=== PATIENT | female | born 1950 | race Caucasian/White ===

== ENCOUNTER → 2016-07-23 | Outpatient (CLI) | payer BC ==
[2016-07-23 12:29] LABS: BASO % 0.9 %; BASO ABS # 0.04 K/uL (0-0.2); COMPLETE YES; EOS % 5.5 %; HEMATOCRIT 42.1 % (37-47); LYMPH % 34.6 %; LYMPH ABS # 1.58 K/uL (1.2-3.4); MEAN CORPUSCULAR HEMOGLOBIN 30.3 pg (25-34); MEAN CORPUSCULAR HGB CONC 33.7 g/dl (32-36); MEAN PLATELET VOLUME 9.9 fL (7.4-10.4); MONO % 7.4 %; NEUT % 51.6 %; PLATELET COUNT 286 K/uL (130-400); RED BLOOD COUNT 4.68 M/uL (4.2-5.4); WHITE BLOOD COUNT 4.57 K/uL (4.8-10.8)
[2016-07-23 12:39] LABS: ALT/SGPT 27 U/L (12-78); BLOOD UREA NITROGEN 22 mg/dl (7-18); BUN/CREATININE RATIO 28.8 (10-20); CALCIUM 9.4 mg/dl (8.5-10.1); CARBON DIOXIDE 24 mmol/L (21-32); CHLORIDE 107 mmol/L (98-107); CHOLESTEROL 261 mg/dl (0-200); CREATININE 0.77 mg/dl (0.60-1.20); GLUCOSE 90 mg/dl (70-99); SODIUM 142 mmol/L (136-145); TRIGLYCERIDES 193 mg/dl (0-150); VERY LOW DENSITY LIPOPROT CALC 39 mg/dl
[2016-07-23 12:49] LABS: ALKALINE PHOSPHATASE 81 U/L (45-117); AST/SGOT 16 U/L (15-37); CHOLESTEROL/HDL RATIO 5.3; HDL CHOLESTEROL 49 mg/dl; LDL CHOLESTEROL CALCULATED 173 mg/dl
== END | disposition home or self-care (01) ==
LOC: C.LABPBG 10:31
PROVIDERS: ATTEND Internal Medicine
DX: E78.5 Hyperlipidemia, unspecified (principal); M85.80 Other specified disorders of bone density and structure, unspecified site; M25.50 Pain in unspecified joint; M79.7 Fibromyalgia; F43.22 Adjustment disorder with anxiety

== ENCOUNTER → 2016-10-20 | Outpatient (CLI) | payer BC ==
--- NOTE | 2016-10-20 17:14 | MAMMOGRAPHY REPORT ---
THIS REPORT HAS BEEN AMENDED. BILATERAL DIGITAL SCREENING MAMMOGRAM WITH CAD: 10/20/2016 CLINICAL HISTORY: Routine screening. Patient has no complaints. TECHNIQUE: Bilateral CC and MLO views were obtained. Current study was also evaluated with a Comput er Aided Detection (CAD) system. COMPARISON: No prior exams were available for comparison. BREAST COMPOSITION: There are scattered areas of fibroglandular density in both breasts. FINDINGS: There are numerous benign rim calcifications throughout the left breast. A few smaller alessandro ign appearing calcifications in the right breast. There is a possible area of architectural distortion in the superior, middle to posterior right breas t, best seen on the MLO view, for which additional spot compression tomosynthesis views and possibly ultrasound are recommended. No other suspicious mass, architectural distortion or cluster of microcalcifications is seen bilatera lly. IMPRESSION: ACR BI-RADS CATEGORY 0: INCOMPLETE EVALUATION: NEED ADDITIONAL IMAGING EVALUATION The possible area of architectural distortion in the superior right breast needs additional evaluatio n. The patient will be called to schedule an appointment. Approximately 10% of breast cancers are not detected with mammography. A negative mammographic report should not delay biopsy if a clinically suggestive mass is present. Rayne Barrera M.D. ay/:10/20/2016 15:41:44 Web Developer Programmer: Joycelyn KIMR, M, [facility] letter sent: [facility] 0 BI-RADS Code: ACR BI-RADS Category 0: Incomplete Evaluation: Need Additional Imaging Evaluation AMENDMENT: 11/23/2016 Rayne Barrera M.D. Prior outside mammograms performed 09/26/2012, 05/29/2014 from [facility] became avail able for review. The report from the May 2014 mammogram is also available. The asymmetry in the superior right breast appears somewhat similar to the 2012 exam suggesting it could represent normal overlapping tissue. However, additional spot compression tomosynthesis views and possible ultrasoun d are recommended. Based on the outside report from 05/29/2014, further evaluation with ultrasound was recommended in th e left breast and it is unclear if this has been performed. Based on the current mammogram comparing to the 2014 exam most of the masses have decreased in size, confirming benign fluctuating cysts. Amended BI-RADS: ACR BI-RADS Category 0: Incomplete Evaluation: Need Additional Imaging Evaluation letter sent: [facility] 0
== END ==
LOC: C.MAMM 14:32
PROVIDERS: ATTEND Obstetrics & Gynecology
DX: Z12.31 Encounter for screening mammogram for malignant neoplasm of breast (principal)

== ENCOUNTER → 2016-12-15 | Outpatient (CLI) | payer BC ==
--- NOTE | 2016-12-15 13:43 | MAMMOGRAPHY REPORT ---
UNILATERAL RIGHT DIGITAL DIAGNOSTIC MAMMOGRAM TOMOSYNTHESIS AND TARGETED RIGHT ULTRASOUND: 12/15/2016 CLINICAL HISTORY: 66-year-old woman called back from screening mammography for an asymmetry in the cortes perior right breast on the MLO view. TECHNIQUE: Spot compression right CC and MLO 2-D and tomosynthesis images were obtained. COMPARISON: Comparison is made to exams dated: 10/20/2016 mammogram and 12/15/2016 ultrasound - [facility]. BREAST COMPOSITION: There are scattered areas of fibroglandular density in the right breast. FINDINGS: On the spot compression MLO view and corresponding tomosynthesis images in the superior rig ht breast, there is effacement of the irregular asymmetry seen on the 10/20/2016 screening mammogram. No persistent architectural distortion or obvious mass. No suspicious microcalcification. Targeted ultrasound was performed throughout the right upper outer and upper inner quadrants. A few scattered benign cysts are seen within the 9:00, 10:00 and 11:00 axes. There is no evidence of a suzanne picious solid or cystic mass. IMPRESSION: ACR BI-RADS CATEGORY 2: BENIGN, TARGETED ULTRASOUND ACR BI-RADS CATEGORY 2: BENIGN There is effacement of the asymmetry in the superior right breast with additional supplemental mammog raphic views and tomosynthesis images. No suspicious mass was identified on targeted ultrasound, onl y a few scattered benign cysts. There is no mammographic or targeted sonographic evidence of maligna ncy. Return to annual mammogram screening schedule is recommended. The patient has been verbally not ified of the results. Approximately 10% of breast cancers are not detected with mammography. A negative mammographic report should not delay biopsy if a clinically suggestive mass is present. Rayne Barrera M.D. ay/:12/15/2016 12:14:39 Improvement Coordinator: Vonnie REYNAGA)(Shailesh), [facility] letter sent: Normal 1/2 BI-RADS Code: ACR BI-RADS Category 2: Benign Ultrasound BI-RADS: ACR BI-RADS Category 2: Benign
== END | disposition home or self-care (01) ==
LOC: C.MAMM 10:45
PROVIDERS: ATTEND Obstetrics & Gynecology
DX: R92.2 Inconclusive mammogram (principal)

== ENCOUNTER → 2017-02-21 | Outpatient (CLI) | payer BC ==
[2017-02-21 11:56] LABS: ALT/SGPT 29 U/L (12-78); AST/SGOT 19 U/L (15-37); BLOOD UREA NITROGEN 22 mg/dl (7-18); BUN/CREATININE RATIO 25.4 (10-20); CALCIUM 9.3 mg/dl (8.5-10.1); CARBON DIOXIDE 25 mmol/L (21-32); CHLORIDE 107 mmol/L (98-107); CREATININE 0.85 mg/dl (0.60-1.20); GLUCOSE 91 mg/dl (70-99); SODIUM 140 mmol/L (136-145)
[2017-02-21 11:59] LABS: CHOLESTEROL 272 mg/dl (0-200); CHOLESTEROL/HDL RATIO 4.6; HDL CHOLESTEROL 59 mg/dl; LDL CHOLESTEROL CALCULATED 173 mg/dl; TRIGLYCERIDES 198 mg/dl (0-150); VERY LOW DENSITY LIPOPROT CALC 40 mg/dl
== END | disposition home or self-care (01) ==
LOC: C.LABPBG 08:50
PROVIDERS: ATTEND Internal Medicine
DX: M85.80 Other specified disorders of bone density and structure, unspecified site (principal); E78.5 Hyperlipidemia, unspecified

== ENCOUNTER → 2017-06-07 | Outpatient (CLI) | payer BC ==
[2017-06-07 12:13] LABS: HEMATOCRIT 44.1 % (37-47); HEMOGLOBIN 14.8 g/dL (12.0-16.0); MEAN CELL VOLUME 91.1 fL (80-100); MEAN CORPUSCULAR HEMOGLOBIN 30.6 pg (25-34); MEAN CORPUSCULAR HGB CONC 33.6 g/dl (32-36); PLATELET COUNT 271 K/uL (130-400); RED CELL DISTRIBUTION WIDTH CV 12.8 % (11.5-14.5); RED CELL DISTRIBUTION WIDTH SD 42.9 fL (36.4-46.3); WHITE BLOOD COUNT 4.41 K/uL (4.8-10.8)
== END | disposition home or self-care (01) ==
LOC: C.LAB1850 10:30
PROVIDERS: ATTEND Internal Medicine
DX: E78.5 Hyperlipidemia, unspecified (principal); M25.50 Pain in unspecified joint

== ENCOUNTER 2024-05-25 12:55 | Inpatient (IN) ==
--- NOTE | 2024-05-25 13:56 | XRay Report ---
XR chest 1V portable CLINICAL HISTORY: chest tightness TECHNIQUE: Single frontal radiograph of the chest was obtained. Comparison: None available at the time of this dictation. FINDINGS: No lines and tubes are seen. The cardiomediastinal silhouette is normal. The lungs are clear. No evid ence of pleural effusion or pneumothorax. IMPRESSION: No acute chest disease. ACT 112: Negative or not required by law. Electronically signed by: Jori Fortune M.D. 05/25/2024 1:55 PM
[2024-05-25 14:00] LABS: Basophils # (auto) 0.06 K/uL (0.00-0.20); Basophils % (auto) 0.5 %; Eosinophils # (auto) 0.06 K/uL (0.00-0.50); Eosinophils % (auto) 0.5 %; Hematocrit (blood only) 43.4 % (37.0-47.0); Hemoglobin 14.2 g/dl (12.0-16.0); Immature Granulocytes # (auto) 0.06 K/uL (0.01-0.20); Immature Granulocytes % (auto) 0.5 %; Lymphocytes # (auto) 1.38 K/uL (1.20-3.40); Lymphocytes % (auto) 10.6 %; Mean Corpuscular Hemoglobin 30.2 pg (25.0-34.0); Mean Corpuscular Hgb Conc 32.7 g/dL (32.0-36.0); Mean Corpuscular Volume 92.3 fL (80.0-100.0); Mean Platelet Volume 9.7 fL (9.4-12.4); Monocytes # (auto) 0.82 K/uL (0.11-0.59); Monocytes % (auto) 6.3 %; Neutrophils # (auto) 10.62 K/uL (1.40-6.50); Neutrophils % (auto) 81.6 %; Platelet Count 285 K/uL (130-400); RDW Coefficient of Variation 12.3 % (11.5-14.5)
[2024-05-25 14:14] LABS: Albumin Globulin Ratio 1.7 (0.9-2); Albumin Level 4.5 gm/dl (3.4-5.0); Bilirubin,Total 0.6 mg/dl (0.2-1.0); Calcium 9.7 mg/dl (8.6-10.3); Globulin 2.7 gm/dl (2.5-4.0); Total Protein 7.2 gm/dl (6.0-8.3)
[2024-05-25 14:16] LABS: Appearance Urine Turbid (Clear); Bacteria Urine Automated None Seen (None Seen); Bilirubin Urine Negative (Negative); Blood Urine 3+ (Negative); Cast Urine Automated 0-2 /lpf (0-2); Color Urine Yellow; Epithelial Cell Urine Auto 0-2 /hpf (0-2); Glucose Urine UA Negative (Negative); Ketones Urine Negative (Negative); Leukocyte Esterase Urine 3+ (Negative); Nitrite Urine Negative (Negative); Protein Urine 2+ (Negative); RBC Urine Automated >20 /hpf (0-2); Specific Gravity Urine 1.016 (1.000-1.030); Urobilinogen Urine Negative (Negative); WBC Urine Automated >50 /hpf (0-5); pH Urine 5.5 (4.5-7.5)
[2024-05-25 14:21] LABS: INR 0.9 (0.9-1.1); Prothrombin Time 10.2 Seconds (9.0-12.0)
--- NOTE | 2024-05-25 14:56 | Emergency Department Note ---
Impression & Plan Generalized weakness, Acute UTI (urinary tract infection) ED Provider Note HISTORY OF PRESENT ILLNESS: Patient is a 74-year-old female presenting with cough and shortness of breath. Patient reports she has been "sick for 18 days." She reports that she was recently diagnosed with a urinary tract infection when she presented with hematuria. Reports that she just finished a course of antibiotics for her UTI 3 days ago. She reports that this morning she woke up and started having bright red blood in her urine again and passing small clots. She reports feeling very rundown and weak and unable to do her daily activities. She has had a chronic cough for 18 days and nasal congestion. Denies any DVT or PE history. Denies any chest pain. Reports that she just feels like she cannot get up and do anything because she lacks any energy. Denies any notable fevers. Denies any abdominal pain, nausea or vomiting. ROS: as above PHYSICAL EXAM: Constitutional: Patient appears in no acute distress. HENT: Head: Normocephalic and atraumatic. Eyes: EOMI, PERRL Mouth/Throat: Mucous membranes moist. Neck: Trachea midline. Neck supple. Cardiovascular: RRR, No murmurs, rubs or gallops. Intact distal pulses. Pulmonary/Chest: No respiratory distress. Breath sounds clear and equal bilaterally. No wheezes or rales. Abdominal: Abdomen soft, no tenderness, rebound or guarding. Musculoskeletal: No edema, tenderness or deformity noted. Skin: Warm and dry. No rash, erythema, pallor or cyanosis Psychiatric: Appropriate mood and affect for situation. Neurological: Alert and keenly responsive. CN II-XII grossly intact, moving all extremities equally and fully. MDM: - Vitals signs stable - History obtained via patient. History as above. - Chronic conditions affecting care: hypothyroidism; HLD; depression/anxiety - Differential diagnoses include, but are not limited to: UTI; ureteral stone; viral syndrome; pneumonia; electrolyte abnormality - Order placed for continuous cardiac monitoring. At this time, monitor showed rate of 84 bpm with normal sinus rhythm, per my interpretation. - External medical records reviewed. Pharmacy report dated 05/15/2024 was reviewed. Patient had a positive urine culture that was pansensitive for E. coli. She was discharged with Keflex which should cover the organism. - EKG interpreted by myself showed normal sinus rhythm. Rate 96 bpm. QT 360. No acute ischemic changes. - Laboratory workup interpreted by myself showed leukocytosis (WBC 13.00) with neutrophil predominance; normal PT/INR; stable electrolyte; normal lipase; normal troponin - UA shows evidence of infection - CXR negative for pneumonia, per my interpretation - Viral respiratory panel negative - Blood cultures, lactate and procalcitonin ordered - Patient given 2g IV rocephin for UTI - CT abdomen/pelvis with IV contrast showed no calculus or hydronephrosis. Noted have a distended bladder and bladder wall thickening concerning for cystitis. No bowel obstruction. Noted to have hepatic steatosis. - Normal procalcitonin, normal lactate on workup. - Discussion was had with manager of case management about patient's case and need for admission - Hospitalist consulted for admission - Patient admitted to [facility] service for further evaluation and management. ASSESSMENT AND PLAN: Diagnosis: generalized weakness; acute UTI Plan: admit Past Med/Surg History Problem List (Updated 05/25/24 @ 15:54 by Damaris Bolanos MD) Acute UTI (urinary tract infection) (Acute) Generalized weakness (Acute) Acute cystitis with hematuria (Acute) History of colon polyps Lobular carcinoma of breast Hypothyroidism Atypical hyperplasia of right breast Pre-op evaluation Right shoulder pain Palpitations Colon cancer screening Fibromyalgia Osteoarthritis Interstitial cystitis GERD (gastroesophageal reflux disease) IBS (irritable bowel syndrome) Depression Anxiety Hyperlipidemia Bladder spasm (Acute) Urethritis (Acute) Medical History Osteoarthritis IBS (irritable bowel syndrome) Hypothyroidism Hyperlipidemia GERD (gastroesophageal reflux disease) Fibromyalgia Anxiety and depression History of COVID-19 Interstitial cystitis History of right breast cancer Nephrolithiasis Temporomandibular joint disorder Surgical History History of lumpectomy of right breast H/O oophorectomy History of esophagogastroduodenoscopy (EGD) History of colonoscopy History of tooth extraction History of adenoidectomy History of tonsillectomy History of cardiac cath H/O: hysterectomy Family History Mother Myocardial infarction Hypertension Father Hypertension Brother Prostate cancer Kidney malignancy Other No family history of adverse response to anesthesia Denies family history of Ovarian cancer Breast cancer Colorectal cancer Social History Smoking Status: Never smoker Second Hand Exposure: No; Do You Dip or Chew Tobacco: No; Hx Alcohol Use: No Hx Substance Use: No Preferred Language: Iraqi Communication Ability: Effective Blender Conveyor Operator Required: No Beliefs That Will Affect Care: None marital status: Current Living Situation: Spouse current occupational status: retired Feels Safe at Home: Yes Childhood Exposure to Second-Hand Smoke: No Dental Care, Regularly: Yes Physical Activity Frequency: Daily Physical Activity Frequency Comment: walking Seatbelt Use: always Sunscreen Use: Yes Assistive Devices: Glasses Allergies Allergies Allergy/AdvReac Type Severity Reaction Status Date / Time morphine Allergy Mild Vomiting Verified 12/05/23 13:15 cyclobenzaprine AdvReac Mild "makes me Verified 12/05/23 13:15 [From Flexeril] not feel good" metaxalone [From Skelaxin] AdvReac Mild "makes me Verified 12/05/23 13:15 not feel good" Home Meds Home Medications Medication Instructions Recorded Confirmed aspirin 81 mg tablet,delayed 81 mg PO QAM 10/17/18 12/05/23 release cholecalciferol (vitamin D3) 50 4,000 unit PO QAM 10/17/18 12/05/23 mcg (2,000 unit) tablet (Vitamin D3) magnesium oxide 400 mg PO QAM 10/17/18 12/05/23 turmeric 400 mg capsule 400 mg PO QAM 10/17/18 12/05/23 vitamin E mixed 400 unit capsule 400 unit PO QAM 10/01/20 12/05/23 levothyroxine 25 mcg tablet 25 mcg PO HS 10/18/23 12/05/23 rosuvastatin 5 mg tablet 5 mg PO [id number] 10/18/23 12/05/23 tamoxifen 10 mg tablet 5 mg PO QPM 10/18/23 12/05/23 famotidine 10 mg tablet (Pepcid AC) 10 mg PO DAILY 12/05/23 12/05/23 Previous Rx's Medication Instructions Recorded escitalopram oxalate 10 mg tablet 20 mg (2 x 10 mg) PO HS #180 tabs 05/10/24 phenazopyridine 200 mg tablet 200 mg PO Q8H 6 doses #6 tabs 05/13/24 (Pyridium) Results & Data (ED) Vital Signs Vital Signs - 24 hr 05/25/24 13:07 05/25/24 14:28 05/25/24 14:30 Temperature 37.0 C Temperature Source Temporal Artery Scan Pulse Rate 90 82 83 Respiratory Rate 20 16 20 Respiratory Effort / Characteristics Non-Labored Spontaneous Respiratory Depth Normal Respiratory Pattern Regular Blood Pressure 128/85 126/86 119/78 Blood Pressure Mean 99 99 91 Blood Pressure Position Sitting Pulse Oximetry 96 93 94 Oxygen Delivery Method Room Air Room Air Sepsis Recent Fever Within 48 Hours No Sepsis New/Unexplained Change in Mental Status N/A Sepsis Action Taken by Nursing No Action Required Laboratory Data 05/25/24 13:22 05/25/24 13:22 Lab Results 05/25/24 05/25/24 05/25/24 Range/Units 13:22 14:00 14:05 WBC 13.00 H (4.8-10.8) K/ul RBC 4.70 (4.20-5.40) M/uL Hgb 14.2 (12.0-16.0) g/dl Hct 43.4 (37.0-47.0) % MCV 92.3 (80.0-100.0) fL MCH 30.2 (25.0-34.0) pg MCHC 32.7 (32.0-36.0) g/dL RDW Std Deviation 42.0 (36.4-46.3) fL RDW Coeff of Oscar 12.3 (11.5-14.5) % Plt Count 285 (130-400) K/uL MPV 9.7 (9.4-12.4) fL Immature Gran % (Auto) 0.5 % Neut % (Auto) 81.6 % Lymph % (Auto) 10.6 % Keith % (Auto) 6.3 % Eos % (Auto) 0.5 % Baso % (Auto) 0.5 % Neut # (Auto) 10.62 H (1.40-6.50) K/uL Lymph # (Auto) 1.38 (1.20-3.40) K/uL Keith # (Auto) 0.82 H (0.11-0.59) K/uL Eos # (Auto) 0.06 (0.00-0.50) K/uL Baso # (Auto) 0.06 (0.00-0.20) K/uL Immature Gran # (Auto) 0.06 (0.01-0.20) K/uL PT 10.2 (9.0-12.0) Seconds INR 0.9 (0.9-1.1) Sodium 138 (136-145) mmol/L Potassium 4.0 (3.5-5.1) mmol/L Chloride 104 (98-107) mmol/L Carbon Dioxide 25 (21-32) mmol/L Anion Gap 9 (3-11) BUN 16 (6-23) mg/dl Creatinine 0.94 (0.6-1.2) mg/dl Est Cr Clr Drug Dosing 48.0 ml/min eGFR 63.67 BUN/Creatinine Ratio 17.0 (10-20) Glucose 131 H (70-99(Fasting)) mg/dl Lactate (0.4-2.0) mmol/L Calcium 9.7 (8.6-10.3) mg/dl Total Bilirubin 0.6 (0.2-1.0) mg/dl AST 24 (13-39) U/L ALT 36 (7-52) U/L Alkaline Phosphatase 60 (34-104) U/L Troponin I High Sens (0-14) pg/ml Total Protein 7.2 (6.0-8.3) gm/dl Albumin 4.5 (3.4-5.0) gm/dl Globulin 2.7 (2.5-4.0) gm/dl Albumin/Globulin Ratio 1.7 (0.9-2) Lipase 21 (11-82) U/L Procalcitonin < 0.02 (0-0.5) ng/ml Urine Color Yellow Urine Appearance Turbid A (Clear) Urine pH 5.5 (4.5-7.5) Ur Specific [place] 1.016 (1.000-1.030) Urine Protein 2+ H (Negative) Urine Glucose (UA) Negative (Negative) Urine Ketones Negative (Negative) Urine Blood 3+ H (Negative) Urine Nitrite Negative (Negative) Urine Bilirubin Negative (Negative) Urine Urobilinogen Negative (Negative) Ur Leukocyte Esterase 3+ H (Negative) Urine WBC (Auto) >50 H (0-5) /hpf Urine RBC (Auto) >20 H (0-2) /hpf U Hyaline Cast (Auto) 0-2 (0-2) /lpf U Epithel Cells (Auto) 0-2 (0-2) /hpf Urine Bacteria (Auto) None Seen (None Seen) Adenovirus (PCR) Not Detected (NotDetected) B. pertussis DNA (PCR) Not Detected (NotDetected) B.parapertussis DNA PCR Not Detected (NotDetected) C. pneumoniae DNA (PCR) Not Detected (NotDetected) Coronavirus OC43 (PCR) Not Detected (NotDetected) Coronavirus HKU1 (PCR) Not Detected (NotDetected) Coronavirus 229E (PCR) Not Detected (NotDetected) SARS-CoV-2 (PCR) Not Detected (NotDetected) Coronavirus NL63 (PCR) Not Detected (NotDetected) Human Metapneumovir PCR Not Detected (NotDetected) Influenza Type A (PCR) Not Detected (NotDetected) Influenza Type B (PCR) Not Detected (NotDetected) M. pneumoniae (PCR) Not Detected (NotDetected) Parainfluenza 1 (PCR) Not Detected (NotDetected) Parainfluenza 2 (PCR) Not Detected (NotDetected) Parainfluenza 3 (PCR) Not Detected (NotDetected) Parainfluenza 4 (PCR) Not Detected (NotDetected) RSV (PCR) Not Detected (NotDetected) Entero/Rhino (PCR) Not Detected (NotDetected) 05/25/24 Range/Units 15:30 WBC (4.8-10.8) K/ul RBC (4.20-5.40) M/uL Hgb (12.0-16.0) g/dl Hct (37.0-47.0) % MCV (80.0-100.0) fL MCH (25.0-34.0) pg MCHC (32.0-36.0) g/dL RDW Std Deviation (36.4-46.3) fL RDW Coeff of Oscar (11.5-14.5) % Plt Count (130-400) K/uL MPV (9.4-12.4) fL Immature Gran % (Auto) % Neut % (Auto) % Lymph % (Auto) % Keith % (Auto) % Eos % (Auto) % Baso % (Auto) % Neut # (Auto) (1.40-6.50) K/uL Lymph # (Auto) (1.20-3.40) K/uL Keith # (Auto) (0.11-0.59) K/uL Eos # (Auto) (0.00-0.50) K/uL Baso # (Auto) (0.00-0.20) K/uL Immature Gran # (Auto) (0.01-0.20) K/uL PT (9.0-12.0) Seconds INR (0.9-1.1) Sodium (136-145) mmol/L Potassium (3.5-5.1) mmol/L Chloride (98-107) mmol/L Carbon Dioxide (21-32) mmol/L Anion Gap (3-11) BUN (6-23) mg/dl Creatinine (0.6-1.2) mg/dl Est Cr Clr Drug Dosing ml/min eGFR BUN/Creatinine Ratio (10-20) Glucose (70-99(Fasting)) mg/dl Lactate 1.4 (0.4-2.0) mmol/L Calcium (8.6-10.3) mg/dl Total Bilirubin (0.2-1.0) mg/dl AST (13-39) U/L ALT (7-52) U/L Alkaline Phosphatase (34-104) U/L Troponin I High Sens < 2.3 (0-14) pg/ml Total Protein (6.0-8.3) gm/dl Albumin (3.4-5.0) gm/dl Globulin (2.5-4.0) gm/dl Albumin/Globulin Ratio (0.9-2) Lipase (11-82) U/L Procalcitonin (0-0.5) ng/ml Urine Color Urine Appearance (Clear) Urine pH (4.5-7.5) Ur Specific [place] (1.000-1.030) Urine Protein (Negative) Urine Glucose (UA) (Negative) Urine Ketones (Negative) Urine Blood (Negative) Urine Nitrite (Negative) Urine Bilirubin (Negative) Urine Urobilinogen (Negative) Ur Leukocyte Esterase (Negative) Urine WBC (Auto) (0-5) /hpf Urine RBC (Auto) (0-2) /hpf U Hyaline Cast (Auto) (0-2) /lpf U Epithel Cells (Auto) (0-2) /hpf Urine Bacteria (Auto) (None Seen) Adenovirus (PCR) (NotDetected) B. pertussis DNA (PCR) (NotDetected) B.parapertussis DNA PCR (NotDetected) C. pneumoniae DNA (PCR) (NotDetected) Coronavirus OC43 (PCR) (NotDetected) Coronavirus HKU1 (PCR) (NotDetected) Coronavirus 229E (PCR) (NotDetected) SARS-CoV-2 (PCR) (NotDetected) Coronavirus NL63 (PCR) (NotDetected) Human Metapneumovir PCR (NotDetected) Influenza Type A (PCR) (NotDetected) Influenza Type B (PCR) (NotDetected) M. pneumoniae (PCR) (NotDetected) Parainfluenza 1 (PCR) (NotDetected) Parainfluenza 2 (PCR) (NotDetected) Parainfluenza 3 (PCR) (NotDetected) Parainfluenza 4 (PCR) (NotDetected) RSV (PCR) (NotDetected) Entero/Rhino (PCR) (NotDetected) Administered Medications Discontinued Medications Ioversol (Optiray 320 100ml) 94 ml IV ONCE ONE Stop: 05/25/24 15:41 Last Admin: 05/25/24 15:41 Dose: 94 ml Documented By: [facility] Data Radiologist's Impression: Chest X-Ray 05/25/24 13:15 XR chest 1V portable CLINICAL HISTORY: chest tightness TECHNIQUE: Single frontal radiograph of the chest was obtained. Comparison: None available at the time of this dictation. FINDINGS: No lines and tubes are seen. The cardiomediastinal silhouette is normal. The lungs are clear. No evidence of pleural effusion or pneumothorax. IMPRESSION: No acute chest disease. ACT 112: Negative or not required by law. Electronically signed by: Jori Fortune M.D. 05/25/2024 1:55 PM Discharge Plan Visit Data Chief Complaint: Hematuria Stated Complaint: UTI, SINUS INFECTION, CHEST TIGHTNESS ED Provider: Damaris Bolanos Discharge Problem: Generalized weakness, Acute UTI (urinary tract infection) Forms Stand Alone Forms: My [facility] Prescriptions Prescriptions: No Action escitalopram oxalate 10 mg tablet 20 mg PO HS Qty: 180 1RF vitamin E mixed 400 unit capsule 400 unit PO QAM famotidine [Pepcid AC] 10 mg tablet 10 mg PO DAILY aspirin 81 mg Tablet,Delayed Release (Dr/Ec) 81 mg PO QAM cholecalciferol (vitamin D3) [Vitamin D3] 2,000 unit Tablet 4,000 unit PO QAM magnesium oxide 400 mg magnesium Capsule 400 mg PO QAM turmeric 400 mg Capsule 400 mg PO QAM levothyroxine 25 mcg tablet 25 mcg PO HS tamoxifen 10 mg tablet 5 mg PO QPM rosuvastatin 5 mg tablet 5 mg PO [id number] Patient Comments: takes mon, wed, , sat Rx Instructions: 5 mg PO TAKE 4 TIMES WEEKLY phenazopyridine [Pyridium] 200 mg tablet 200 mg PO Q8H Qty: 6 0RF Referrals Referrals: Vicente Tang MD [Primary Care Provider] -
[2024-05-25 15:04] LABS: Adenovirus PCR Not Detected (NotDetected); Bordetella parapertussis PCR Not Detected (NotDetected); Bordetella pertussis PCR Not Detected (NotDetected); Chlamydia pneumoniae PCR Not Detected (NotDetected); Coronavirus 229E PCR Not Detected (NotDetected); Coronavirus CoV-2 (COVID19)PCR Not Detected (NotDetected); Coronavirus HKU1 PCR Not Detected (NotDetected); Coronavirus NL63 PCR Not Detected (NotDetected); Coronavirus OC43PCR Not Detected (NotDetected); Human Metapneumovirus PCR Not Detected (NotDetected); Influenza A PCR Not Detected (NotDetected); Influenza B PCR Not Detected (NotDetected); Mycoplasma pneumoniae PCR Not Detected (NotDetected); Parainfluenza Virus 1 PCR Not Detected (NotDetected); Parainfluenza Virus 2 PCR Not Detected (NotDetected); Parainfluenza Virus 3 PCR Not Detected (NotDetected); Parainfluenza Virus 4 PCR Not Detected (NotDetected); Respiratory Syncytial VirusPCR Not Detected (NotDetected); Rhinovirus/Enterovirus PCR Not Detected (NotDetected)
[2024-05-25] MEDS: OPTIRAY 320 100ml IV ONE (15:41)
--- NOTE | 2024-05-25 16:18 | History & Physical Report ---
Date of Service May 25, 2024 Assessment & Plan (1) Acute UTI (urinary tract infection): (2) Hematuria: (3) Generalized weakness: (4) Cough: Plan Katie is a 74F with a PMHx of fibromyalgia, GERD, interstitial cystitis, hypothyroidism who presents to the ED with her for ongoing illness. Also with repeat gross hematuria with clots and concerns for UTI after recent completion of Keflex for pisano sensitive E.Coli #UTI/Hematuria Mild leukocytosis. UA with blood, leuks, but no epis or nitrates. Urine Culture pending Blood cultures pending CT A/P distended bladder, bladder wall thickening, no stones Recent UTI with pisano sensitive E. Coli continue Ceftriaxone Consult Urology given repeat gross hematuria Hold ASA #Weakness Likely secondary to repeat UTI Biofire negative. PT/OT consults #Cough Bio fire negative Supportive car: prn nebs, mucinex, IS, tessalon pear Mental health continue Lexapro Hypothyroid continue synthroid, WNL 11/2023, recheck AM HLD continue statin Dispo: admit to med surg DVT proh: chemical held with hematuria updated at bedside 05/25 History of Present Illness Chief Complaint: weakness Primary Care Provider: Vicente Tang MD Katie is a 74F with a PMHx of fibromyalgia, GERD, interstitial cystitis, hypothyroidism who presents to the ED with her for ongoing illness. Reports feeling sick for the last 18 days, feeling very run down. Reports chills, denies fevers. Recently seen and treated for pisano sensitive E. Coli - since finishing her keflex on Tuesday in which she completed the full course, she states she is feeling worse. Reports return of hematuria. Also with ongoing cough all night, non productive. Feels like her chest is tight. Denies chest pain. Denies n/v/d. Reports poor appetite. Also feels like she is weak. Denies using assistive deices. no falls at home. ED course: ceftriaxone Allergies Allergy/AdvReac Type Severity Reaction Status Date / Time morphine Allergy Mild Vomiting Verified 12/05/23 13:15 cyclobenzaprine AdvReac Mild "makes me Verified 12/05/23 13:15 [From Flexeril] not feel good" metaxalone [From Skelaxin] AdvReac Mild "makes me Verified 12/05/23 13:15 not feel good" Home Medications Medication Instructions Recorded Confirmed Type aspirin 81 mg tablet,delayed 81 mg PO QAM 10/17/18 05/25/24 History release cholecalciferol (vitamin D3) 50 4,000 unit PO QAM 10/17/18 05/25/24 History mcg (2,000 unit) tablet (Vitamin D3) magnesium oxide 400 mg PO QAM 10/17/18 05/25/24 History turmeric 400 mg capsule 400 mg PO QAM 10/17/18 05/25/24 History vitamin E mixed 400 unit capsule 400 unit PO QAM 10/01/20 05/25/24 History levothyroxine 25 mcg tablet 25 mcg PO HS 10/18/23 05/25/24 History rosuvastatin 5 mg tablet 5 mg PO 4XWK 10/18/23 05/25/24 History tamoxifen 10 mg tablet 5 mg PO QPM 10/18/23 05/25/24 History famotidine 10 mg tablet (Pepcid AC) 10 mg PO DAILY 12/05/23 05/25/24 History escitalopram oxalate 10 mg tablet 20 mg (2 x 10 mg) PO HS #180 tabs 05/10/24 05/25/24 Rx Past Med/Surg History Problem List (Updated 05/25/24 @ 16:52 by Abril Morales PA-C) Cough Hematuria Acute UTI (urinary tract infection) (Acute) Generalized weakness (Acute) Acute cystitis with hematuria (Acute) History of colon polyps Lobular carcinoma of breast Hypothyroidism Atypical hyperplasia of right breast Pre-op evaluation Right shoulder pain Palpitations Colon cancer screening Fibromyalgia Osteoarthritis Interstitial cystitis GERD (gastroesophageal reflux disease) IBS (irritable bowel syndrome) Depression Anxiety Hyperlipidemia Bladder spasm (Acute) Urethritis (Acute) Medical History Osteoarthritis IBS (irritable bowel syndrome) Hypothyroidism Hyperlipidemia GERD (gastroesophageal reflux disease) Fibromyalgia Anxiety and depression History of COVID-19 Interstitial cystitis History of right breast cancer Nephrolithiasis Temporomandibular joint disorder Surgical History History of lumpectomy of right breast H/O oophorectomy History of esophagogastroduodenoscopy (EGD) History of colonoscopy History of tooth extraction History of adenoidectomy History of tonsillectomy History of cardiac cath H/O: hysterectomy Family History Mother Myocardial infarction Hypertension Father Hypertension Brother Prostate cancer Kidney malignancy Other No family history of adverse response to anesthesia Denies family history of Ovarian cancer Breast cancer Colorectal cancer Social History Smoking Status: Never smoker Second Hand Exposure: No; Do You Dip or Chew Tobacco: No; Hx Alcohol Use: No Hx Substance Use: No Preferred Language: Uzbek Communication Ability: Effective Rewinder Operator Helper Required: No Beliefs That Will Affect Care: None marital status: Current Living Situation: Spouse current occupational status: retired Feels Safe at Home: Yes Childhood Exposure to Second-Hand Smoke: No Dental Care, Regularly: Yes Physical Activity Frequency: Daily Physical Activity Frequency Comment: walking Seatbelt Use: always Sunscreen Use: Yes Assistive Devices: Glasses Review of Systems Review of Systems: All systems reviewed & are unremarkable except as noted in Subjective Physical Exam Physical Exam: General: NAD, VS as above Resp: normal respiratory effort, lungs diminished in bases, dry cough CV: RRR, no murmur, Abd: normal bowel sounds, + suprapubic tenderness Extremities: Moves all extremities, no edema Neuro: A&O x3, Results & Data Results & Data Vital Signs (Past 12 Hours) Vital Signs Temp Pulse Resp BP Pulse Ox O2 Del Method 05/25/24 14:30 83 20 119/78 94 05/25/24 14:28 82 16 126/86 93 Room Air 05/25/24 13:07 98.6 F 90 20 128/85 96 Room Air Laboratory Results CBC, chemistry, coags reviewed Troponin reviewed lipase reviewed procal reviewed UA and biofire reviewed Medications Administered CT A/P reviewed Supervising Physician Co-Signing Physician Notes I have personally seen, evaluated and examined the patient. I have also personally discussed the management of the patient with the resident physician/KAITY and I agree with the exam findings documented in the history and physical examination and the documented assessment and plan unless otherwise stated below. Brief Exam: In general very pleasant 70-year-old female who is alert and oriented x 3 at the time of my exam. She is having painless hematuria. The patient is a mother of Dr. Harry Walker - physician whom I have worked with for many years at various facilities including [facility] and [facility]. The patient does wish to be a full code and any decisions to be made by her son Jhoan if she cannot speak for herself. We offered multiple times to call her son personally discussed the case she states that he already spoke with someone here and she does not feel the need to recontact him at this point. We offered that anytime for the evening if he would like to speak with me to please reach out the nursing and they can inform me and I can make contact with him. Postvoid residual was [address] a Newman catheter at this time. HEENT: Normocephalic, atraumatic. Heart: Regular rate and rhythm no murmur or ectopy or rub. Lungs: Clear bilaterally. Abdomen: Soft, nontender, positive bowel sounds. No appreciable organomegaly or abdominal bruits. Extremities: Intact with no clubbing cyanosis or edema. Neurologically she is alert and oriented x 3 and no focal deficit whatsoever on exam. Assessment/plan: As discussed above. With a gross hematuria and the recurrence of her UTI we will continue Rocephin. Will consult urology for entertaining a cystoscopy for definitive diagnoses. The patient had a recent CAT scan of the abdomen pelvis on May 13, 2024. It showed cystitis. In addition there was hepatic steatosis present. Therefore no repeat imaging was obtained. Will await further input from urology. Additional assessment. Hepatic steatosis. To be followed up with primary care physician for surveillance monitoring. PG Care Time/CCT Total # of Minutes Spent Total Time Spent with Patient: Total time spent is greater than 50% in coordination of care (as documented) at patient's floor/unit and/or counseling patient: Coding Level of Care Code 06275 INT INP/OBS CARE 3/75MIN Diagnoses Acute UTI (urinary tract infection) N39.0 Hematuria R31.9 Generalized weakness R53.1 Cough R05.9
--- NOTE | 2024-05-25 16:19 | CT Scan Report ---
CT OF THE ABDOMEN AND PELVIS WITH CONTRAST CLINICAL HISTORY: Hematuria. COMPARISON STUDY: CT of the abdomen and pelvis May 13, 2024. TECHNIQUE: Following IV administration of 94 mL of Optiray, axial images of the abdomen and pelvis we re obtained from the lung bases to the proximal femurs. Images were reviewed in the axial, sagittal, and coronal planes. IV contrast was administered without complication. Automated exposure control wa s utilized for the study. A dose lowering technique was utilized adhering to the principles of ALARA . CT DOSE: 1254.54 mGy.cm FINDINGS: Visualized portions bases are unremarkable. There is no pneumatosis, free air or portal bryn ous gas. Severe hepatic steatosis is noted. There is no biliary or pancreatic ductal dilatation. A fe w hypodense hepatic lesions were present on CT of September 20, 2014. These represent cysts. The spleen, adr enal glands, kidneys and pancreas are unremarkable. There are no renal lesions. Nephrograms are symme tric. There are no urinary calculi. No hydronephrosis. The bladder is distended. Uniform mild bladder wall thickening is present. This was shown on prior CT. The appendix is normal. There is no evidence for a bowel obstruction. There is no lymphadenopathy. Major vasculature is patent. No fluid collecti ons are present. IMPRESSION: 1. No urinary calculi or hydronephrosis. 2. Distended bladder. Bladder wall thickening with mild mucosal enhancement. This is nonspecific and could be correlated urinalysis. No discrete lesion by CT. If indicated, cystoscopy could be performed . 3. No bowel obstruction. No bowel wall thickening. 4. Hepatic steatosis. ACT 112: Negative or not required by law. Electronically signed by: Jaxon Gutierrez M.D. 05/25/2024 3:58 PM
[2024-05-25] MEDS: cefTRIAXone SODIUM 2,000 MG/50 ML BAG IV STA (16:36)
--- NOTE | 2024-05-25 17:53 | Electrocardiogram Report ---
Test Reason : Blood Pressure : */* mmHG Vent. Rate : 96 BPM Atrial Rate : 96 BPM P-R Int : 130 ms QRS Dur : 76 ms QT Int : 360 ms P-R-T Axes : 48 -14 -14 degrees QTcB Int : 454 ms Normal sinus rhythm Nonspecific ST and T wave abnormality Abnormal ECG No previous ECGs available Confirmed by Efrain Mejia ([id number]) on 05/25/2024 5:53:09 PM Referred By: REFERRED SELF Confirmed By: Efrain Mejia
[2024-05-25] MEDS ORDERED: ONDANSETRON INJ 2 MG/ML 2 ML VIAL IV PRN (19:34)
[2024-05-25] MEDS ORDERED: ALBUT/IPRATROP 3MG/0.5MG NEB 3 ML VIAL NEB PRN (19:34)
[2024-05-25 20:06] VITALS: RESP 16; O2SAT 96
[2024-05-25] MEDS: TAMOXIFEN CITRATE 10 MG TABLET PO SCH ×2 (21:20→21:34)
[2024-05-25] MEDS: ACETAMINOPHEN 325 MG TAB PO PRN (21:20)
[2024-05-25] MEDS: LEVOTHYROXINE SODIUM 25 MCG TABLET PO SCH (21:21)
[2024-05-25] MEDS: ESCITALOPRAM OXALATE 20 MG TAB PO SCH (21:21)
[2024-05-25] MEDS: guaiFENesin 600 MG TABCR PO SCH (21:21)
[2024-05-25] MEDS ORDERED: Nursing to Pharmacy Communication SCH (23:15)
[2024-05-26 06:43] LABS: Basophils # (auto) 0.04 K/uL (0.00-0.20); Basophils % (auto) 0.7 %; Eosinophils # (auto) 0.14 K/uL (0.00-0.50); Eosinophils % (auto) 2.4 %; Hematocrit (blood only) 42.1 % (37.0-47.0); Hemoglobin 13.4 g/dl (12.0-16.0); Immature Granulocytes # (auto) 0.01 K/uL (0.01-0.20); Immature Granulocytes % (auto) 0.2 %; Lymphocytes # (auto) 1.93 K/uL (1.20-3.40); Mean Corpuscular Hemoglobin 29.7 pg (25.0-34.0); Mean Corpuscular Hgb Conc 31.8 g/dL (32.0-36.0); Mean Corpuscular Volume 93.3 fL (80.0-100.0); Mean Platelet Volume 9.3 fL (9.4-12.4); Monocytes # (auto) 0.72 K/uL (0.11-0.59); Monocytes % (auto) 12.3 %; Neutrophils # (auto) 3.01 K/uL (1.40-6.50); Neutrophils % (auto) 51.4 %; Platelet Count 249 K/uL (130-400); RDW Coefficient of Variation 12.4 % (11.5-14.5); RDW Standard Deviation 42.6 fL (36.4-46.3); Red Blood Count 4.51 M/uL (4.20-5.40); White Blood Count 5.85 K/ul (4.8-10.8)
[2024-05-26 07:15] LABS: Albumin Globulin Ratio 1.6 (0.9-2); Albumin Level 4.1 gm/dl (3.4-5.0); BUN Creatinine Ratio 16.7 (10-20); Bilirubin,Total 0.5 mg/dl (0.2-1.0); Calcium 9.5 mg/dl (8.6-10.3); Creatinine Clr Calc Pharmacy 53.6 ml/min; Globulin 2.6 gm/dl (2.5-4.0); Magnesium 2.4 mg/dl (1.7-2.4); Potassium 4.7 mmol/L (3.5-5.1); Total Protein 6.7 gm/dl (6.0-8.3)
[2024-05-26 07:29] LABS: Thyroid Stimulating Hormone 1.597 uIu/ml (0.300-4.500)
[2024-05-26 07:31] VITALS: BP 131/85; PULSE 74; TEMP 97.9
[2024-05-26] MEDS: MAGNESIUM OXIDE 400 MG TAB PO SCH (08:45)
[2024-05-26] MEDS: FAMOTIDINE 10 MG TABLET PO SCH (08:45)
[2024-05-26] MEDS: BENZONATATE 100 MG CAPSULE PO PRN (08:45)
[2024-05-26] MEDS ORDERED: ROSUVASTATIN CALCIUM 5 MG TAB PO SCH ×2 (09:00→21:00)
--- NOTE | 2024-05-26 10:21 | Urology Consultation ---
Date of Consultation May 26, 2024 Assessment & Plan (1) Hematuria: Plan 74-year-old female admitted for an ongoing illness who also was noted to have gross hematuria. Follow-up cultures and treat accordingly Suspect hematuria is related to an infection exacerbating interstitial cystitis, however recommended the patient still undergo hematuria workup. This can be done as an outpatient as a cystoscopy in the clinic. Urology to sign off. Message has been sent to schedule outpatient cystoscopy History of Present Illness Attending Physician: Catherine Carver MD History of Present Illness 74-year-old female admitted for an ongoing illness who also was noted to have gross hematuria. Patient reports hematuria roughly a week ago and was started on antibiotics. This initially resolved and then returned. She reports no issues voiding and only a small amount of clot. Review of labs today shows no abnormalities. Urine and blood cultures are pending. Independently reviewed his CT scan of the abdomen and pelvis which does not show any hydronephrosis or any obvious blood product in the bladder. Bladder was distended. Patient reports previously seeing Dr. Edge, last in 2014 for history of interstitial cystitis. Allergies Allergy/AdvReac Type Severity Reaction Status Date / Time morphine Allergy Mild Vomiting Verified 12/05/23 13:15 cyclobenzaprine AdvReac Mild "makes me Verified 12/05/23 13:15 [From Flexeril] not feel good" metaxalone [From Skelaxin] AdvReac Mild "makes me Verified 12/05/23 13:15 not feel good" Home Medications Medication Instructions Recorded Confirmed Type aspirin 81 mg tablet,delayed 81 mg PO QAM 10/17/18 05/25/24 History release cholecalciferol (vitamin D3) 50 4,000 unit PO QAM 10/17/18 05/25/24 History mcg (2,000 unit) tablet (Vitamin D3) magnesium oxide 400 mg PO QAM 10/17/18 05/25/24 History turmeric 400 mg capsule 400 mg PO QAM 10/17/18 05/25/24 History vitamin E mixed 400 unit capsule 400 unit PO QAM 10/01/20 05/25/24 History levothyroxine 25 mcg tablet 25 mcg PO HS 10/18/23 05/25/24 History rosuvastatin 5 mg tablet 5 mg PO 4XWK 10/18/23 05/25/24 History tamoxifen 10 mg tablet 5 mg PO QPM 10/18/23 05/25/24 History famotidine 10 mg tablet (Pepcid AC) 10 mg PO DAILY 12/05/23 05/25/24 History escitalopram oxalate 10 mg tablet 20 mg (2 x 10 mg) PO HS #180 tabs 05/10/24 05/25/24 Rx Patient History Medical History Osteoarthritis IBS (irritable bowel syndrome) Hypothyroidism Hyperlipidemia GERD (gastroesophageal reflux disease) Fibromyalgia Anxiety and depression History of COVID-19 Interstitial cystitis History of right breast cancer Nephrolithiasis Temporomandibular joint disorder Surgical History History of lumpectomy of right breast H/O oophorectomy History of esophagogastroduodenoscopy (EGD) History of colonoscopy History of tooth extraction History of adenoidectomy History of tonsillectomy History of cardiac cath H/O: hysterectomy Family History Mother Myocardial infarction Hypertension Father Hypertension Brother Prostate cancer Kidney malignancy Other No family history of adverse response to anesthesia Denies family history of Ovarian cancer Breast cancer Colorectal cancer Social History Smoking Status: Never smoker Second Hand Exposure: No; Do You Dip or Chew Tobacco: No; Tobacco Cessation Education Requested by Patient: No Hx Alcohol Use: No Hx Substance Use: No Preferred Language: Zambian Communication Ability: Effective Golf Professional Required: No Beliefs That Will Affect Care: Yazdanism Yazdanism Beliefs: Hindu marital status: Current Living Situation: Spouse current occupational status: retired Other Information That Helps Us Care for You: No Feels Safe at Home: Yes Safety Concerns: Feels Safe At This Time Childhood Exposure to Second-Hand Smoke: No Dental Care, Regularly: Yes Physical Activity Frequency: Daily Physical Activity Frequency Comment: walking Seatbelt Use: always Sunscreen Use: Yes Assistive Devices: Glasses Physical Exam Physical Exam: General: Alert and oriented, no acute distress HEENT: Normocephalic, mucous membranes moist Pulmonary: Nonlabored respirations Abdomen: Nondistended Extremities: Moves all 4 spontaneously Neuro: No gross deficits Skin: Warm, dry, no rashes noted Results & Data Vital Signs (Past 12 Hours) Vital Signs Temp Pulse Resp BP Pulse Ox O2 Del Method 05/26/24 07:30 36.6 C 74 16 131/85 96 Room Air PG Care Time/CCT Total # of Minutes Spent Total Time Spent with Patient: Total time spent is greater than 50% in coordination of care (as documented) at patient's floor/unit and/or counseling patient: Coding Level of Care Code 82943 INT INP/OBS CARE 2/55MIN Diagnoses Hematuria R31.9
[2024-05-26] MEDS ORDERED: cefTRIAXone SODIUM 2,000 MG/50 ML BAG IV SCH (16:00)
--- NOTE | 2024-05-26 16:30 | Discharge Summary ---
Discharge Summary Date of Service May 26, 2024 Principal Dx & Hospital Course #1 = Principal Diagnosis (1) Acute UTI (urinary tract infection): (2) Hematuria: (3) Generalized weakness: (4) Cough: Plan Katie is a 74F with a PMHx of fibromyalgia, GERD, interstitial cystitis, hypothyroidism who presents to the ED with her for ongoing illness. Also with repeat gross hematuria with clots and concerns for UTI after recent completion of Keflex for pisano sensitive E.Coli #UTI/Hematuria Mild leukocytosis. UA with blood, leuks, but no epis or nitrates. Urine culture grew 80,000 E. coli which has been pisano-sensitive CT A/P distended bladder, bladder wall thickening, no stones Urologist Dr. Wick consulted, thought hematuria caused by UTI but plans outpatient follow up for cystoscopy I prescribed her augmentin for sinusitis, which will complete the treatment for the E. coli (pisano-sensitive) UTI Blood cultures pending Hold ASA one week #Cough - ongoing 3+ weeks and feels run down Bio fire negative, CXR clear, procal low no evidence of pneumonia Possibly serial viral infections, could be mycoplasma or pertussis, also could be aggravated by postnasal drainage She was treated with ceftriaxone last night and had significant loosening up and increase in sinus drainage. She has sx of acute bacterial sinusitis - augmentin x 10 days plus three days of afrin, cont nasal saline Azithromycin 500 mg x 3 days [place] [facility] continue Lexapro Hypothyroid continue synthroid, TSH was nl HLD continue statin Notes For Next Care Provider Medication Changes From Visit new: augmentin, azithro Admission HPI Per Admitting Provider Katie is a 74F with a PMHx of fibromyalgia, GERD, interstitial cystitis, hypothyroidism who presents to the ED with her for ongoing illness. Reports feeling sick for the last 18 days, feeling very run down. Reports chills, denies fevers. Recently seen and treated for pisano sensitive E. Coli - since finishing her keflex on Tuesday in which she completed the full course, she states she is feeling worse. Reports return of hematuria. Also with ongoing cough all night, non productive. Feels like her chest is tight. Denies chest pain. Denies n/v/d. Reports poor appetite. Also feels like she is weak. Denies using assistive deices. no falls at home. ED course: ceftriaxone Discharge Plan Discharge Items Patient Disposition: Home - Self-Care Reason For Visit: UTI, HEMATURIA Discharge Diagnosis: Acute bronchitis and sinusitis, UTI, hematuria Activity: Resume your previous activity Non-emergency contact: Primary Care Provider and Urologist Call non-emergency contact if: you have any medication questions, your symptoms worsen and your temperature is above 101 Follow-up/Referrals: Vicente Tang MD [Primary Care Provider] - 06/01/24 11:00 am Doug Wick MD [Physician] - Diet: Regular Addtl Attending Provider Instructions: You had hematuria - probably related to UTI and interstitial cystitis, but follow up with Dr. Wick for cystoscopy as an outpatient You still have E. coli UTI - your urine culture from yesterday still has a good amount of E. coli in it -the amoxicillin-clavulanate (see below) will be effective for the UTI I think you have bacterial sinusitis - we will treat this with amoxicillin- clavulanate (augmentin) for 10 days. Also use afrin spray as directed for three days to drain your sinuses, then stop so that you don't get dependent on it. You can continue using nasal saline Your persistent cough could be from a series of viruses, or it could be from an infection like mycoplasma or pertussis which are circulating in the community -take azithromycin 500 mg daily for three days, which will cover these infections Its a good idea to take a probiotic for 2-4 weeks to prevent antibiotic- associated diarrhea Viral infections (or pertussis) can cause a cough that can persists for three weeks, but should be gradually improving It was a pleasure taking care of you in the hospital, Catherine Carver MD Pending Studies at Discharge: Yes (blood cultures - finalize after 5 days) Stand-Alone Forms: My [facility] [employer], Smoking Cessation Medications and DC Order Prescriptions: New acetaminophen 325 mg Tablet 650 mg PO Q4H PRN (Reason: fever or pain) Qty: 0 0RF Rx Instructions: max 3000 mg per 24h guaifenesin [Mucinex] 600 mg Tablet Extended Release 12hr 600 mg PO Q12 Qty: 0 0RF Rx Instructions: buy over the counter amoxicillin-pot clavulanate 875-125 mg tablet 1 tab PO Q12H Qty: 20 0RF azithromycin 500 mg tablet 500 mg PO DAILY 3 Days Qty: 3 0RF Continued escitalopram oxalate 10 mg tablet 20 mg PO HS Qty: 180 1RF vitamin E mixed 400 unit capsule 400 unit PO QAM famotidine [Pepcid AC] 10 mg tablet 10 mg PO DAILY cholecalciferol (vitamin D3) [Vitamin D3] 2,000 unit Tablet 4,000 unit PO QAM magnesium oxide 400 mg magnesium Capsule 400 mg PO QAM turmeric 400 mg Capsule 400 mg PO QAM levothyroxine 25 mcg tablet 25 mcg PO HS tamoxifen 10 mg tablet 5 mg PO QPM rosuvastatin 5 mg tablet 5 mg PO 4XWK Patient Comments: takes mon, wed, thur, sat Rx Instructions: 5 mg PO TAKE 4 TIMES WEEKLY Held aspirin 81 mg Tablet,Delayed Release (Dr/Ec) 81 mg PO QAM Hold Instructions: Resume on 06/02/24. hold for 1 week until hematuria resolves Discharge Orders: Discharge Order (Routine); Ordered 05/26/24 Ordered By: Catherine Jewell/Other Patient Handouts: Hematuria: Possible Causes Admission Data Admit Date/Time: 05/25/24 16:51 Attending Provider: Catherine Carver Admit Provider: Moy Carranza Primary Care Provider: Vicente Tang Other Providers: Moy Carranza; Doug Wick. Other Interventions: Discharge Summary Assessment (RN) Last Done: 05/26/24 11:56 Hospital Stay Data Consultations 05/25/24 16:02 ED Decision to Admit Stat 05/25/24 16:47 Consult Urology Routine Diagnostic Imagining Performed 05/25/24 15:11 CT Abd and Pelvis [CT abd pelvis IV con only] Stat Pending Results Patient Have Any Pending Studies at Discharge: Yes (blood cultures - finalize after 5 days) Discharge Instructions Given to Patient (Per Discharging Provider) You had hematuria - probably related to UTI and interstitial cystitis, but follow up with Dr. Wick for cystoscopy as an outpatient You still have E. coli UTI - your urine culture from yesterday still has a good amount of E. coli in it -the amoxicillin-clavulanate (see below) will be effective for the UTI I think you have bacterial sinusitis - we will treat this with amoxicillin- clavulanate (augmentin) for 10 days. Also use afrin spray as directed for three days to drain your sinuses, then stop so that you don't get dependent on it. You can continue using nasal saline Your persistent cough could be from a series of viruses, or it could be from an infection like mycoplasma or pertussis which are circulating in the community -take azithromycin 500 mg daily for three days, which will cover these infections Its a good idea to take a probiotic for 2-4 weeks to prevent antibiotic- associated diarrhea Viral infections (or pertussis) can cause a cough that can persists for three weeks, but should be gradually improving It was a pleasure taking care of you in the hospital, Catherine Carver MD Total Time Total Time Spent Total Time Spent (In Minutes): <30 Coding Level of Care Code 67835 IN/OBS DISCH 30 MIN/LESS Diagnoses Acute UTI (urinary tract infection) N39.0 Hematuria R31.9 Generalized weakness R53.1 Cough R05.9
== END 2024-05-26 13:20 | disposition home or self-care (01) | DRG 690 ==
LOC: ED 12:55 → SUATTDRO 16:51 → 3E 16:51